=== PATIENT | male | born 1995 ===

== ENCOUNTER 2019-08-18 15:45 | Emergency (ER) | payer SELFPAY ==
[~2019-08-18] VITALS: Ht 162.6 cm; Wt 77.3 kg
[2019-08-18 16:40] LABS: BASO # 0.1 (0.02-0.10); EOS # 0.1 (0.04-0.40); EOS % 0.9 % (0.0-4.0); HEMATOCRIT 43.2 % (42.0-52.0); HEMOGLOBIN 14.4 g/dL (13.5-18.0); LYMPH# 1.2 (1.50-4.00); MEAN CELL VOLUME 92 fl (78-100); MEAN CORPUSCULAR HEMOGLOBIN 31 pg (27-31); MEAN CORPUSCULAR HGB CONC 33 g/dL (33-37); MEAN PLATELET VOLUME 10.5 fl (7.4-10.4); MONO # 0.8 (0.20-0.80); NEU # 5.9 (1.40-6.50); PLATELET COUNT 272 K/mm3 (130-400); RED BLOOD COUNT 4.69 M/mm3 (4.20-5.60); RED CELL DISTRIBUTION WIDTH 12.8 % (11.5-14.5); WHITE BLOOD COUNT 8.1 K/mm3 (4.8-10.8)
[2019-08-18 16:46] LABS: ALBUMIN 4.3 g/dL (3.5-5.0); POTASSIUM 3.8 mmol/L (3.5-5.1)
[2019-08-18 16:48] LABS: CALCIUM 9.5 mg/dL (8.3-10.5)
[2019-08-18 16:49] LABS: TOTAL PROTEIN 7.2 g/dL (6.4-8.3)
[2019-08-18 16:51] LABS: TOTAL BILIRUBIN 0.5 mg/dL (0.2-1.2)
[2019-08-18 17:12] LABS: URINE APPEARANCE CLEAR; URINE BILIRUBIN NEGATIVE (NEGATIVE); URINE BLOOD NEGATIVE (NEGATIVE); URINE COLOR YELLOW; URINE GLUCOSE NEGATIVE (NEGATIVE); URINE KETONE NEGATIVE (NEGATIVE); URINE LEUKOCYTE ESTERASE NEGATIVE (NEGATIVE); URINE NITRATE NEGATIVE (NEGATIVE); URINE PROTEIN(semi-quant) NEGATIVE (NEGATIVE); URINE UROBILINOGEN NORMAL (NORMAL); URINE WBC 0-1 /hpf (0-3)
[2019-08-18 17:13] LABS: URINE MUCUS PRESENT (NOT PRESENT)
[2019-08-18] MEDS ORDERED: NORCO 325 MG-51 TA1 PO (17:41)
[2019-08-18 18:38] VITALS: BP 140/88
== END 2019-08-18 18:38 | disposition home or self-care (01) ==
LOC: ED 15:45
PROVIDERS: Nurse Practitioner Primary Care
DX: K55.069 Acute infarction of intestine, part and extent unspecified (principal); Z98.890 Other specified postprocedural states
CPT/HCPCS: J2270; J2405; Q9967